=== PATIENT | female | born 1980 | race Caucasian/White ===

== ENCOUNTER → 2016-11-30 | Outpatient (CLI) | payer MEDICARE ==
[~2016-11-30] MED LIST: ASPIRIN81 MG PO; BRILINTA90 MG PO; EFFEXOR XR 150150 MG PO; LIPITOR TAB 2020 MG PO; LOPRESSOR 25 MG25 MG PO; NITROSTAT0.4 MG SL; NOVOLOG 10100 UNITS/ SC; PRILOSEC OTC20 MG PO; SEROQUEL50 MG PO; ZANAFLEX4 MG PO; ZESTRIL5 MG PO
== END ==
LOC: HEART 5 08:03
DX: I21.19 ST elevation (STEMI) myocardial infarction involving other coronary artery of inferior wall (principal)
CPT/HCPCS: 78452; 93017; A9502; J2785

== ENCOUNTER 2017-02-06 22:38 | Emergency (ER) | payer MEDICARE | END 2017-02-07 02:00 | disposition left against medical advice (07) | LOC: ER1 22:38 | DX: Z53.21 Procedure and treatment not carried out due to patient leaving prior to being seen by health care provider (principal) | CPT/HCPCS: 93005 ==

== ENCOUNTER → 2017-03-19 | Outpatient (CLI) | payer MEDICARE | LOC: US 10:01 | DX: I73.9 Peripheral vascular disease, unspecified (principal); I25.10 Atherosclerotic heart disease of native coronary artery without angina pectoris; E10.51 Type 1 diabetes mellitus with diabetic peripheral angiopathy without gangrene | CPT/HCPCS: 93925 ==

== ENCOUNTER → 2020-10-20 | Outpatient (CLI) | payer OTHER ==
[~2020-10-20] MED LIST changes: +BACTRIM DS TAB1 EACH PO; +BRILINTA 90 MG90 MG PO; +BRIVIACT100 MG PO; +ECOTRIN81 MG PO; +HABITROL 14 MG P1 EA TOP; +IBU800 MG PO; +IBUPROFEN600 MG PO; +ISOSORBIDE MONO30 MG PO; +KEPPRA500 MG PO; +LASIX20 MG PO; +MACROBID 100 M100 MG PO; +NORCO 5-325 TA1 EACH PO; +NORVASC 5 MG TAB5 MG PO; +PANTOPRAZOLE SO40 MG PO; +PLAVIX 75 MG TA75 MG PO; +PREDNISONE20 MG PO; +TENORMIN 25 MG25 MG PO; +VISTARIL 50 MG50 MG PO; +ZANAFLEX 4 MG TA4 MG PO; +ZETIA10 MG PO; +ZOFRAN4 MG PO; +ZYRTEC10 M3 PO
== END ==
LOC: CT 14:45
DX: I67.1 Cerebral aneurysm, nonruptured (principal)
CPT/HCPCS: 36415; 70496; 82565; Q9967

== ENCOUNTER 2021-01-25 00:33 | Observation (INO) | payer OTHER ==
[~2021-01-25] VITALS: Ht 165.1 cm; Wt 88.0 kg
[~2021-01-25 00:33] MED LIST changes: -BRIVIACT100 MG PO; -PLAVIX 75 MG TA75 MG PO; -ZANAFLEX 4 MG TA4 MG PO; -ZETIA10 MG PO
[2021-01-25 01:37] LABS: HEMOGLOBIN 15.4 gm/dl (12.3-15.3); RED BLOOD COUNT 5.45 M/UL (4.00-5.10); WHITE BLOOD COUNT 18.3 K/UL (4.5-11.0)
[2021-01-25 02:02] LABS: BUN/CREATININE RATIO 11 (0-10)
[2021-01-25] MEDS ORDERED: ZETIA10 MG PO (03:24)
[2021-01-25] MEDS ORDERED: PRILOSEC OTC20 MG PO (03:26)
[2021-01-25] MEDS ORDERED: PLAVIX 75 MG TA75 MG PO (03:27)
[2021-01-25] MEDS ORDERED: ZANAFLEX 4 MG TA4 MG PO (03:28)
[2021-01-25] MEDS ORDERED: BRIVIACT100 MG PO (03:28)
== END 2021-01-25 07:55 | disposition left against medical advice (07) ==
LOC: ER1 00:33 → CDU 02:28 → MED SURG 4 02:28
PROVIDERS: Internal Medicine; ADMIT Internal Medicine
DX: R07.9 Chest pain, unspecified (principal); I25.10 Atherosclerotic heart disease of native coronary artery without angina pectoris; G40.909 Epilepsy, unspecified, not intractable, without status epilepticus; E11.9 Type 2 diabetes mellitus without complications; E87.6 Hypokalemia; D72.829 Elevated white blood cell count, unspecified; I10 Essential (primary) hypertension; I25.2 Old myocardial infarction; E78.5 Hyperlipidemia, unspecified; E66.9 Obesity, unspecified; F17.210 Nicotine dependence, cigarettes, uncomplicated; Z95.5 Presence of coronary angioplasty implant and graft; Z68.32 Body mass index [BMI] 32.0-32.9, adult; Z88.8 Allergy status to other drugs, medicaments and biological substances; Z79.02 Long term (current) use of antithrombotics/antiplatelets; Z79.82 Long term (current) use of aspirin; Z79.4 Long term (current) use of insulin; Z79.899 Other long term (current) drug therapy; Z20.822 Contact with and (suspected) exposure to COVID-19
CPT/HCPCS: 36415; 71045; 73030; 80053; 82550; 82553; 83874; 84132; 84484; 85025; 93005; 96374; 96375; 99285; G0378; J2270; J2405; U0002

== ENCOUNTER → 2021-03-03 | Outpatient (CLI) | payer OTHER ==
[~2021-03-03] MED LIST changes: +BRIVIACT100 MG PO; +PLAVIX 75 MG TA75 MG PO; +ZANAFLEX 4 MG TA4 MG PO; +ZETIA10 MG PO
== END ==
LOC: KOH-I 13:33
DX: M75.102 Unspecified rotator cuff tear or rupture of left shoulder, not specified as traumatic (principal)
CPT/HCPCS: 73221

== ENCOUNTER → 2021-05-23 | Outpatient (CLI) | payer OTHER | LOC: EMI 15:00 | DX: G40.219 Localization-related (focal) (partial) symptomatic epilepsy and epileptic syndromes with complex partial seizures, intractable, without status epilepticus (principal) | CPT/HCPCS: 70553; A9577 ==

== ENCOUNTER → 2021-11-17 | Outpatient (CLI) | payer OTHER | LOC: EMI 09:07 | DX: M75.102 Unspecified rotator cuff tear or rupture of left shoulder, not specified as traumatic (principal); R93.6 Abnormal findings on diagnostic imaging of limbs | CPT/HCPCS: 73221 ==

== ENCOUNTER → 2021-12-16 | Day surgery (SDC) | payer OTHER ==
[~2021-12-16] VITALS: Ht 165.1 cm; Wt 75.7 kg
[~2021-12-16] MED LIST changes: +CRESTOR 10 MG T10 MG PO; +GVOKE HYPO0.5 MG/0.2 SQ; +LEVOTHYROXINE25 MCG PO; +NAYZILAM5 MG/0.1 M; +NEURONTIN300 MG PO; +NORVASC2.5 MG PO; +PRILOSEC OTC PO; +ROPINIROLE HCL4 MG PO; +ROXICODONE5 MG PO; +SEROQUEL400 MG PO; -SEROQUEL50 MG PO; +TOPAMAX100 MG PO; +VOLTAREN ARTHRI20 GM TOP
== END | disposition home or self-care (01) ==
LOC: OR 07:23
DX: S43.432A Superior glenoid labrum lesion of left shoulder, initial encounter (principal); M75.52 Bursitis of left shoulder; M75.112 Incomplete rotator cuff tear or rupture of left shoulder, not specified as traumatic; M65.9 Synovitis and tenosynovitis, unspecified; K21.9 Gastro-esophageal reflux disease without esophagitis; E78.5 Hyperlipidemia, unspecified; E11.9 Type 2 diabetes mellitus without complications; I25.10 Atherosclerotic heart disease of native coronary artery without angina pectoris; I11.0 Hypertensive heart disease with heart failure; I25.2 Old myocardial infarction; I50.9 Heart failure, unspecified; Z87.891 Personal history of nicotine dependence; Z95.5 Presence of coronary angioplasty implant and graft; Z79.82 Long term (current) use of aspirin; Z79.4 Long term (current) use of insulin; Z20.822 Contact with and (suspected) exposure to COVID-19; Z88.8 Allergy status to other drugs, medicaments and biological substances; X58.XXXA Exposure to other specified factors, initial encounter
CPT/HCPCS: 82962; C1713; J0171; J0592; J0690; J1100; J2250; J2405; J2704; J2710; J2795; J7030; J7120

== ENCOUNTER 2022-01-14 21:37 | Emergency (ER) | payer OTHER ==
[2022-01-15] MEDS ORDERED: PERCOCET 5/325 T1 EA PO (22:45)
[2022-01-15] MEDS ORDERED: AMOX TR-K CLV1 EAC4 PO (22:45)
== END 2022-01-15 00:01 | disposition left against medical advice (07) ==
LOC: ER1 21:37
DX: Z53.21 Procedure and treatment not carried out due to patient leaving prior to being seen by health care provider (principal)

== ENCOUNTER 2022-01-15 17:35 | Emergency (ER) | payer OTHER ==
[2022-01-15] MEDS ORDERED: AMOX TR-K CLV1 EAC4 PO (22:45)
[2022-01-15] MEDS ORDERED: PERCOCET 5/325 T1 EA PO (22:45)
== END 2022-01-15 23:04 | disposition home or self-care (01) ==
LOC: ER1 17:35
DX: S90.852A Superficial foreign body, left foot, initial encounter (principal); S40.012A Contusion of left shoulder, initial encounter; S90.32XA Contusion of left foot, initial encounter; S90.31XA Contusion of right foot, initial encounter; E10.9 Type 1 diabetes mellitus without complications; F17.290 Nicotine dependence, other tobacco product, uncomplicated; Y04.0XXA Assault by unarmed brawl or fight, initial encounter
CPT/HCPCS: 10060; 73030; 73630; 87070; 87205; 99283

== ENCOUNTER → 2022-05-04 | Day surgery (SDC) | payer OTHER ==
[~2022-05-04] VITALS: Ht 165.1 cm; Wt 75.7 kg
[~2022-05-04] MED LIST changes: +AMOX TR-K CLV1 EAC4 PO; +ENDOCET 10-3251 EACH PO; +KLOR-CON 1010 MEQ PO; +OMEPRAZOLE40 MG PO; +PERCOCET 5/325 T1 EA PO; +SEROQUEL200 MG PO; +VITAMIN D21250 MCG PO
[2022-05-04 09:48] LABS: HEMOGLOBIN 13.7 gm/dl (12.3-15.3); RED BLOOD COUNT 4.64 M/UL (4.00-5.10)
[2022-05-04 10:11] LABS: BUN/CREATININE RATIO 16 (0-10)
== END | disposition home or self-care (01) ==
LOC: OR 08:57
PROVIDERS: Orthopaedic Surgery
DX: S52.572A Other intraarticular fracture of lower end of left radius, initial encounter for closed fracture (principal); I11.9 Hypertensive heart disease without heart failure; E78.5 Hyperlipidemia, unspecified; K21.9 Gastro-esophageal reflux disease without esophagitis; E10.9 Type 1 diabetes mellitus without complications; I25.10 Atherosclerotic heart disease of native coronary artery without angina pectoris; Z79.82 Long term (current) use of aspirin; Z79.02 Long term (current) use of antithrombotics/antiplatelets; Z79.899 Other long term (current) drug therapy; V89.2XXA Person injured in unspecified motor-vehicle accident, traffic, initial encounter
CPT/HCPCS: 36415; 73110; 76000; 80048; 82962; 83036; 85027; 93005; C1713; J0690; J1100; J1170; J1885; J2001; J2250; J2405; J2704; J2795; J3010

== ENCOUNTER 2022-05-28 06:52 | Emergency (ER) | payer OTHER ==
[2022-05-28 08:02] LABS: HEMOGLOBIN 12.8 gm/dl (12.3-15.3); RED BLOOD COUNT 4.5 M/UL (4.00-5.10); WHITE BLOOD COUNT 11.5 K/UL (4.5-11.0)
[2022-05-28 08:27] LABS: BUN/CREATININE RATIO 15 (0-10)
[2022-05-28] MEDS ORDERED: TOPAMAX100 MG PO (08:46)
== END 2022-05-28 10:04 | disposition home or self-care (01) ==
LOC: ER1 06:52
PROVIDERS: Physician Assistant
DX: G40.909 Epilepsy, unspecified, not intractable, without status epilepticus (principal); E10.65 Type 1 diabetes mellitus with hyperglycemia; I25.10 Atherosclerotic heart disease of native coronary artery without angina pectoris; Z76.0 Encounter for issue of repeat prescription; Z87.891 Personal history of nicotine dependence; Z88.8 Allergy status to other drugs, medicaments and biological substances
CPT/HCPCS: 71045; 80053; 80201; 82550; 82553; 84484; 85025; 93005; 99284